=== PATIENT | male | born 1940 | race Caucasian/White ===

== ENCOUNTER 2019-05-29 18:07 | Observation (INO) | payer OTHER ==
[~2019-05-29] VITALS: Ht 175.3 cm; Wt 68.6 kg
[~2019-05-29 18:07] MED LIST: HYDROCHLOROTHIA25 MG PO; KETOROLAC TROME10 MG PO; LISINOPRIL40 MG PO; LORAZEPAM2 MG PO; NOVOLOG MI10 U/0.11 SQ; ZOLOFT100 MG PO
[2019-05-29 18:19] VITALS: Ht 175.3 cm; Wt 68.6 kg
--- NOTE | 2019-05-29 18:26 | NUR ---
EKG IN PROGRESS.
--- NOTE | 2019-05-29 18:54 | NUR ---
DR HIGGINBOTHAM AT BEDSIDE FOR MSE.
--- NOTE | 2019-05-29 19:19 | NUR ---
REPORT GIVEN TO ELIZABETH FIGUEROA TO ASSUME CARE OF PT.
[2019-05-29 19:26] LABS: BASOPHIL % 0.2 % (0-2); PLATELET COUNT 166 x10^3mcL (130-400); RED CELL DISTRIBUTION WIDTH 13.7 % (11.5-14.5)
[2019-05-29 19:57] LABS: ALKALINE PHOSPHATASE 92 U/L (46-116); ALT/SGPT 39 U/L (16-63); AST/SGOT 29 U/L (15-37); BILIRUBIN TOTAL 0.43 mg/dL (0.20-1.00); CALCIUM 8.3 mg/dL (8.5-10.1); CARBON DIOXIDE 26.8 mmol/L (21-32); CHLORIDE SERUM 96 mmol/L (98-107); CREATININE SERUM 2.1 mg/dL (0.7-1.3); GLUCOSE SERUM 152 mg/dL (74-106); SODIUM SERUM 134 mmol/L (136-145); TOTAL PROTEIN, SERUM 6.6 g/dL (6.4-8.2)
[2019-05-29 19:58] LABS: ALBUMIN 2.3 g/dL (3.4-5.0)
[2019-05-29 19:59] LABS: POTASSIUM SERUM 2.7 mmol/L (3.5-5.1)
--- NOTE | 2019-05-29 20:22 | NUR ---
PT RESTING IN A POSITION OF COMFORT AT THIS TIME, AOX4, RESP EVEN AND UNLABORED, NO ACUTE DISTRESS NOTED. PT SON AT BEDSIDE.
[2019-05-29 20:25] LABS: microscopic required? YES; urine erythrocyte 1+ (NEGATIVE)
--- NOTE | 2019-05-29 22:43 | NUR ---
PT FAMILY PROVIDED WITH UPDATE ON PLAN OF CARE.
--- NOTE | 2019-05-29 23:52 | NUR ---
GAVE PT REPORT TO KRISTINE JOHNSON TO ASSUME PRIMARY CARE OF PT ONCE TRANSFERRED UPSTAIRS TO TELE FLOOR.
[2019-05-30] VITALS (7 sets, daily range): BP systolic 121–168; BP diastolic 61–78
--- NOTE | 2019-05-30 00:19 | NUR ---
PT TAKEN UPSTAIRS BY MYSELF AND EMT CLAUDIA VIA [facility]. PT FAMILY FOLLOWED NOHEMY. NO INCIDENCE DURING TRANSFER
--- NOTE | 2019-05-30 00:21 | NUR ---
RECEIVED PT FROM ED VIA [facility]. ORIENTED PT TO ROOM AND SURROUNDINGS. IV NOTED TO RAC PATENT AND INTACT. TELE 16 PLACED ON PT READING SR WITH BBB. INSTRUCTED PT ON THE USE OF CALL LIGHT FOR ASSISTANCE. ENDORSED PT TO PRIMARY NURSE KRISTINE
--- NOTE | 2019-05-30 01:02 | NUR ---
PT QUIET IN BED. FAMILY AT BEDSIDE. DENIES PAIN AND DIZZINESS THUS FAR. SPOKE WITH DR. GARRETT FOR CLARIFICATION OF ORDERS. DR. GARRETT CALLED BACK. MADE PT COMFORTABLE. PLACED CALL LIGHT WITH IN REACH. WILL CONTINUE TO MONITOR.
[2019-05-30 06:07] LABS: PLATELET COUNT 201 x10^3mcL (130-400); RED CELL DISTRIBUTION WIDTH 13.3 % (11.5-14.5)
[2019-05-30 06:31] LABS: ALKALINE PHOSPHATASE 88 U/L (46-116); ALT/SGPT 40 U/L (16-63); AST/SGOT 32 U/L (15-37); BILIRUBIN TOTAL 0.4 mg/dL (0.20-1.00); CHLORIDE SERUM 99 mmol/L (98-107); CREATININE SERUM 1.9 mg/dL (0.7-1.3); GLUCOSE SERUM 147 mg/dL (74-106); MAGNESIUM 1.6 mg/dL (1.8-2.4); POTASSIUM SERUM 3.2 mmol/L (3.5-5.1); SODIUM SERUM 137 mmol/L (136-145); TOTAL PROTEIN, SERUM 6.9 g/dL (6.4-8.2)
--- NOTE | 2019-05-30 06:35 | NUR ---
PT RESTING WITH EYES CLOSED. EASILY AROUSABLE WITH VERBAL STIMULI. NO SIGNIFICANT CHANGES NOTED. IV INTACT AND INFUSING ORDERED. MADE PT COMFORTABLE. WILL ENDORSE TO THE AM NURSE ACCORDINGLY.
[2019-05-30 06:39] LABS: ALBUMIN 2.5 g/dL (3.4-5.0)
[2019-05-30 07:10] LABS: BASOPHIL % 0 % (0-2)
--- NOTE | 2019-05-30 07:34 | NUR ---
PT LYING IN BED, A/A. BREATHING EQUAL/UNLABORED ON RA. NO ACUTE PAIN/ DISTRESS. IVF RUNNING AT 80ML/HR. NO REDNESS/ SWELLING TO IV SITE. BED IN LOW POSITION, CALL LIGHT IN REACH, SAFETY PRECAUTIONS IN PLACE. WILL CONTINUE TO MONITOR
--- NOTE | 2019-05-30 12:07 | NUR ---
PT LYING IN BED A/A. BREATHING EQUAL/UNLABORED ON RA. NO ACUTE PAIN/ DISTRESS. IVF RUNNING AT 80ML/HR. NO REDNESS/SWELLING TO IV SITE. BED IN LOW POSITION, CALL LIGHT IN REACH, SAFETY PRECAUTIONS IN PLACE, FAMILY AT BED SIDE. WILL CONTINUE TO MONITOR
--- NOTE | 2019-05-30 14:05 | NUR ---
PT BROUGHT DOWN TO CT BY W/C. NO ACUTE PAIN/ DISTRESS.
--- NOTE | 2019-05-30 14:19 | NUR ---
PT BACK FROM CT. NO ACUTE PAIN/ DISTRESS. WILL CONTINUE TO MONITOR
--- NOTE | 2019-05-30 15:56 | NUR ---
PT LYING IN BED A/A. BREATHING EQUAL/UNLAOBORED ON RA. NO ACUTE PAIN/ DISTRESS. IVF RUNNING AT 80ML/HR. NO REDNESS/ SWELLING TO IV SITE. BED IN LOW POSITION, CALL LIGHT IN REACH, SAFETY PRECAUTIONS IN PLACE, WILL CONTINUE TO MONITOR
--- NOTE | 2019-05-30 17:30 | NUR ---
PT STATES HE IS FEELING NAUSEOUS AND DOES NOT WANT TO EAT. ZOFRAN PRN GIVEN. WILL GIVE HUMALOG WHEN PT IS READY TO EAT. WILL CONTINUE TO MONITOR
--- NOTE | 2019-05-30 18:25 | NUR ---
CALLED [facility] AND SPOKE TO DR MELVI GUAJARDO REGARDING ACCU CHECK (83), PT DOES NOT WANT TO EAT. INSULIN HELD. WILL CONTINUE TO MONITOR
--- NOTE | 2019-05-30 18:28 | NUR ---
PT LYING IN BED A/A. BREATHING EQUAL/ UNLABORED ON RA. NO ACUTE PAIN/ DISTRESS. IVF RUNNING AT 80ML/HR. NO REDNESS/ SWELLING TO IV SITE. BED IN LOW POSITION, CALL LIGHT IN REACH, SAFETY PRECAUTIONS IN PLACE. WILL ENDORSE TO NIGHT NURSE
--- NOTE | 2019-05-30 19:20 | NUR ---
CARE ASSUMED FROM OUTGOING RN. PT RESTING COMFORTABLY IN BED. NO ACUTE DISTRESS NOTED. EVEN AND UNLABORED RESPIRATIONS ON RA. ON TELE# 16 READING SR 79 WITH BBB. IV PATENT AND INTACT RUNNING FLUIDS PER EMAR. NO C/O PAIN AT THIS TIME. BED IN LOWEST POSITION. SIDE RAILS UPX2. CALL LIGHT WITHIN REACH. WILL CONTINUE TO MONITOR.
--- NOTE | 2019-05-31 00:11 | NUR ---
PT RESTING IN BED WITH EYES CLOSED. NO ACUTE DISTRESS NOTED. EVEN AND UNLABORED RESPIRATIONS ON RA. ON TELE# 16 READING SR 80 WITH BBB, OCC PVCS. IV PATENT AND INTACT RUNNING FLUIDS PER EMAR. BED IN LOWEST POSITION. SIDE RAILS UPX2. CALL LIGHT WITHIN REACH. WILL CONTINUE TO MONITOR.
[2019-05-31 04:37] VITALS: BP 158/66
--- NOTE | 2019-05-31 06:30 | NUR ---
PT SLEPT IN INTERVALS THROUGHOUT THE SHIFT. ALL NEEDS TENDED TO AND MET. BS CHECKED, 106 AND 94, NO COVERAGE NEEDED. EVEN AND UNLABORED RESPIRATIONS ON RA. ON TELE#16 READING SR 75 WITH BBB, OCC PVC'S. IV PATENT AND INTACT RUNNING FLUIDS PER EMAR. NO C/O PAIN AT THIS TIME. BED IN LOWEST POSITION. SIDE RAILS UPX2. CALL LIGHT WITHIN REACH. WILL ENDORSE TO ONCOMING SHIFT.
[2019-05-31 06:32] LABS: BASOPHIL % 0.3 % (0-2); PLATELET COUNT 170 x10^3mcL (130-400); RED CELL DISTRIBUTION WIDTH 13.6 % (11.5-14.5)
[2019-05-31 06:36] LABS: CALCIUM 8.2 mg/dL (8.5-10.1); CARBON DIOXIDE 23.6 mmol/L (21-32); CHLORIDE SERUM 101 mmol/L (98-107); CREATININE SERUM 1.8 mg/dL (0.7-1.3); GLUCOSE SERUM 106 mg/dL (74-106); POTASSIUM SERUM 3.8 mmol/L (3.5-5.1); SODIUM SERUM 135 mmol/L (136-145)
--- NOTE | 2019-05-31 07:10 | NUR ---
RECEIVED PT FROM KATTY RN. PT AA/OX4, LAYING IN BED. NO S/S OF ACUTE DISTRESS. SPEECH CLEAR. FOLLOWS COMPLEX COMMANDS. RESPONDS TO VERBAL STIMULI. FACE SYMMETRICAL. NO SOB ON ROOM AIR. NO CHEST PAIN. NSR W/ BBB AND OCCASSIONAL PVCS ON TELE 16. HR 73. FALL PREC IN PLACE. BED ALARM ON. IV WNL TO RAC, IVF FLOWING. INSTRUCTED TO USE CALL LIGHT TO CALL FOR ASSISTANCE PRN. PT VERBALIZED UNDERSTANDING. WILL CONT. TO MONITOR.
[2019-05-31 07:55] VITALS: BP 158/68
[2019-05-31 12:55] VITALS: BP 146/69
[2019-05-31] MEDS ORDERED: CIPRO500 MG PO (14:12)
[2019-05-31 14:25] VITALS: BP 146/69
--- NOTE | 2019-05-31 14:49 | NUR ---
PT LAYING IN BED. AA/OX4. DENIES PAIN. NO S/S OF ACUTE DISTRESS. NO SOB ON ROOM AIR. NO CHEST PAIN. CALM/COOPERATIVE. PT CALM/COOPERATIVE. FALL PREC IN PLACE. BED IN LOW POSITION. CALL LIGHT WITHIN REACH. WILL CONT. TO MONITOR.
--- NOTE | 2019-05-31 15:34 | NUR ---
PT BEING DISCHARGED TO HOME. AWAKE, ALERT, ORIENTED X4. NO S/S OF ACUTE DISTRESS. DENIES SOB. NO DIZZINESS. NO FRANKEL. NO N/V. NO CHEST PAIN. CALM/COOPERATIVE. DISCHARGE EDUCATION PROVIDED TO PT AND FAMILY. INSTRUCTED TO FOLLOW UP WITH PCP WITHIN ONE WEEK. PT AND FAMILY VERBALIZED UNDERSTANDING. IV REMOVED FROM RAC, CATHETER IN TACT. PRESSURE APPLIED. SITE WNL. TELE REMOVED. PRESCRIPTION PROVIDED TO PATIENT. BELONGINGS WITH PATIENT.
--- NOTE | 2019-05-31 15:40 | NUR ---
TAKEN TO LOBBY BY ELIZABETH PEACE BY WHEELCHAIR. ACCOMPANIED BY FAMILY.
== END 2019-05-31 13:35 | disposition home health service (06) ==
LOC: ED 18:07 → DU 22:32
PROVIDERS: Emergency Medicine; Internal Medicine Pulmonary Disease; ADMIT Internal Medicine Pulmonary Disease
DX: D72.829 Elevated white blood cell count, unspecified (principal); N39.0 Urinary tract infection, site not specified; E86.0 Dehydration; E11.9 Type 2 diabetes mellitus without complications; I10 Essential (primary) hypertension; R91.8 Other nonspecific abnormal finding of lung field; Z86.73 Personal history of transient ischemic attack (TIA), and cerebral infarction without residual deficits
CPT/HCPCS: 82962; 90658; 97116-GP; G0378; J0696; J1644; J2405; J7030; J7050; J7060; J7120; Q0092